=== PATIENT | female | born 1945 | race Caucasian/White ===

== ENCOUNTER → 2016-09-23 | Outpatient (CLI) | payer OTHER ==
[~2016-09-23] MED LIST: ANTIVERT PO; ATARAX PO; ATIVAN PO; AUGMENTIN PO; BUSPAR15 M2 PO; BUSPIRONE PO; CELEBREX PO; CELEXA20 MG PO; CIPRO PO; CITALOPRAM HBR40 MG PO; FLAGYL PO; FLONASE NASAL SPRAY; HCTZ PO; HYDROCODON-ACE1 EAC7 PO; LEVAQUIN PO; LISINOPRIL PO; LORTAB 5-325 M1 EACH PO; LORTAB 5/500 TA1 TA1 PO; MEDI-MECLIZINE25 M1 PO; MELOXICAM PO; MELOXICAM15 MG PO; MOBIC15 MG PO; NABUMETONE PO; NEURONTIN PO; NEXIUM PO; NORVASC PO; NORVASC10 MG PO; OMEPRAZOLE20 M2 PO; PAXIL PO; PREDNISONE10 MG/DOSE PO; PRILOSEC PO; PRILOSEC20 MG PO; ROBAXIN PO; SINGULAIR PO; ULTRAM PO; ZESTRIL10 M2 PO; ZOFRAN; ZOFRAN ODT4 MG PO; ZOFRAN PO; ZOFRAN2 MG/M1 PO; ZOFRAN8 MG PO; ZOLOFT PO
--- NOTE | ~2016-09-23 | MY11 ---
[facility] A Service of [facility] RADIOLOGY TEXT RESULTS PATIENT: ABRAHAN CLEARY LOCATION: [facility] : 45 UNIT #: [id number] AGE: [address]: Genet Andrew MD SEX: F ORDER DR: [id number] [facility] [address] [place], [place] [address] [id number] O MR#: [id number] Acc #: [id number] NAME: ABRAHAN CLEARY : 1945 SEX: F STUDY DATE/TIME: 09/23/2016 14:59 UNIT: [facility] ROOM: STUDY DESCRIPTION: MY Mammogram Screening Dig Star Attending Physician: Genet Andrew M.D. Referring Physician: Genet Andrew M.D. Ordering Physician: Genet Andrwe M.D. Primary Care Physician: Genet Andrew M.D. MEDICAL IMAGING REPORT This report is preliminary unless electronic signature is present EXAM Digital screening mammogram 09/23/2016. HISTORY A 71-year-old woman, no risk elevation. Annual screening. COMPARISON STUDIES 09/19/2015 with followup right breast 10/26/2015 FINDINGS Digital imaging of each breast was completed utilizing a two-view examination of each breast in craniocaudal and mediolateral-oblique projections. Review and interpretation of digital mammograms include a second review in conjunction with FDA-approved CAD device. There is a normal parenchymal presentation bilaterally consistent with the patient's age. There are no breast masses imaged and no parenchymal asymmetry is visualized. There are no suspicious microcalcifications and I see no focal architectural disturbance. IMPRESSION Negative screening digital mammogram. One-year followup recommended. Patients over the age of 40 are entered into a reminder system with target due date for the next mammogram. A result letter will also be sent to the patient. BIRADS: 1 Negative Dictated by... Madhu Bonilla M.D. [facility] A Service [facility] RADIOLOGY TEXT RESULTS PATIENT: ABRAHAN CLEARY LOCATION: [facility] : 45 UNIT #: [id number] AGE: [address]: Genet Andrew MD SEX: F ORDER DR: THIS IS AN ELECTRONICALLY VERIFIED REPORT Madhu Bonilla M.D. at 09/24/2016 8:04 AM Audrey TD: 09/23/2016 20:39 JOB #: [id number] MEDICAL IMAGING REPORT Page 1 of 1 COPY
== END | disposition home or self-care (01) ==
LOC: CWCC 14:34
DX: Z12.31 Encounter for screening mammogram for malignant neoplasm of breast (principal)
CPT/HCPCS: G0202